=== PATIENT | male | born 1985 | race Caucasian/White ===

== ENCOUNTER 2016-06-04 18:54 | Emergency (ER) | payer OTHER ==
[2016-06-04] MEDS ORDERED: diphenhydrAMINE INJ 50MG/ML VIAL (J1200) As Ordered ONE (20:15)
[2016-06-04] MEDS ORDERED: METOCLOPRAMIDE INJ 10MG/2ML VIAL (J2765) As Ordered ONE (20:15)
[2016-06-04] MEDS ORDERED: dexameTHASONE 4 MG/ML 1ML VIAL (J1100) As Ordered ONE (20:15)
--- NOTE | 2016-06-04 21:27 | EDDOCDS ---
Physician Documentation [facility] Name: Reg Montejo Age: 30 yrs Sex: Male : 1985 Arrival Date: 06/04/2016 Time: 18:54 Bed I9 Private MD: Other - Complete Info On Cds Disposition: 06/04/16 21:13 Discharged to Home/Self Care. Impression: Headache. - Condition is Stable. - Medication Reconciliation, Local Pharmacy Hours form. - Follow up: Emergency Department; When: As soon as possible; Reason: Worsening of conditions. Follow up: Private Physician; When: 1 - 2 days; Reason: Recheck today's complaints. - Problem is an acute exacerbation. - Symptoms have improved. Historical: - Allergies: No known drug Allergies; - Home Meds: 1. Tylenol 325 mg Oral tab 1 tab (Last dose: 06/04/2016 17:00) - PMHx: Migraine Headaches; Cluster Headaches; GERD; Sleep Apnea w/o CPAP; - PSHx: none; - Social history: Smoking status: Patient states was never smoker of tobacco. No barriers to communication noted, The patient speaks fluent Slovenian, Speaks appropriately for age, Preferred Language: Slovenian. - Family history: Not pertinent. - : The pt / caregiver states he / she is not on anticoagulants. Home medication list is obtained from the patient. - Exposure Risk Screening:: None identified. Vital Signs: 06/04 18:57 BP 129 / 80; Pulse 71; Resp 18 S; Temp 98.2(O); Pulse Ox 99% on R/A; Weight 68.04 kg / gr2 150 lbs (R); Height 5 ft. 11 in. (180.34 cm) (R); Pain 6/10; 21:23 BP 127 / 75; Pulse 62; Resp 18; Temp 96.8(O); Pulse Ox 99% on R/A; Pain 0/10; kb5 18:57 Body Mass Index 20.92 (68.04 kg, 180.34 cm) gr2 MDM: 20:00 Decadron - Dexamethasone Sodium Phosphate 8 mg IM once ordered. jk8 20:00 Metoclopramide 10 mg IM once ordered. jk8 20:00 diphenhydrAMINE 25 mg IM once ordered. jk8 20:00 IV Saline Lock ordered. jk8 20:00 NS 0.9% 1000 ml IV at bolus once ordered. jk8 20:28 diphenhydrAMINE 25 mg IVP once ordered. jk8 20:28 Metoclopramide 10 mg IV at 40 mg/hr once over 15 mins ordered. jk8 20:28 Dexamethasone (0.6mg/kg) 0.6 mg/kg PO once; not to exceed 10 milligrams. Per Pharmacy, 8 may use IV solution orally ordered. 20:39 Financial registration complete. gjb Administered Medications: 20:24 Drug: NS 0.9% 1000 ml [sodium chloride 0.9 % intravenous solution] Route: IV; Rate: jmb bolus; Site: left antecubital; 21:24 Follow up: IV Status: Infusion discontinued; IV Intake: 800ml jf3 20:25 Not Given (IV): Decadron - Dexamethasone Sodium Phosphate 8 mg IM once jk8 20:25 Not Given (IV): Metoclopramide 10 mg IM once jk8 20:25 Not Given (IV): diphenhydrAMINE 25 mg IM once jk8 20:29 Drug: Dexamethasone (0.6mg/kg) 8 mg {Note: 8 mg given per provider order.} Route: PO; jmb 21:24 Follow up: Response: Pain is decreased jf3 20:30 Drug: diphenhydrAMINE 25 mg [diphenhydramine 50 mg/mL injection solution (0.5 mL)] jmb Route: IVP; Site: left antecubital; 21:24 Follow up: Response: Pain is decreased jf3 20:30 Drug: Metoclopramide 10 mg [metoclopramide 5 mg/mL injection solution] Route: IV; Rate: jmb 40 mg/hr; Infused Over: 15 mins; Site: left antecubital; 21:24 Follow up: Response: Pain is decreased jf3 Signatures: Elaina RamiresRN RN lf1 Chase Cobb PA-C PA-C jk8 Michael Martinez RN RN jf3 Palak Platt Roger Rankin RN b MTDD
--- NOTE | 2016-06-04 21:27 | EDDOCDS ---
Nurse's Notes [facility] Name: Reg Montejo Age: 30 yrs Sex: Male : 1985 Arrival Date: 06/04/2016 Time: 18:54 Bed I9 / Private MD: Other - Complete Info On Cds Diagnosis: Headache Presentation: 06/04 19:00 Presenting complaint: Patient states: Has been out of his migraine medicine for about a lf1 month and now has a headache and dental pain. Pain is lower right side of jaw and above left eye, described as throbbing and is currently 6/10. Presenting complaint: Patient states: Pt reports he has seen Dr. Fernández and had testing done because he was having 10-15 headaches per day. States he has cancelled two appointments with him because he has been working. Next appt. is scheduled in July 2016. This patient has no additional risk factors. Adult Sepsis Screening: The patient does not have new or worsening altered mentation. Patient's respiratory rate is less than 22. Systolic blood pressure is greater than 100. Patient has a qSOFA score of 0- Negative Sepsis Screen. Suicide/Homicide risk assessment- the patient denies having any suicidal and/or homicidal ideations and does not present with any other emotional, behavioral or mental health complaints. 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 Transition of care: patient was not received from another setting of care. 19:00 Acuity: TRANG Level 4 lf1 19:00 Method Of Arrival: Walkin/Carried/Asstd lf1 Triage Assessment: 19:05 Headache History: This headache is like all previous headaches. General: Appears in no lf1 apparent distress, comfortable, Behavior is cooperative. Pain: Location: left eye and right jaw Pain currently is 6 out of 10 on a pain scale. Pain began 5 hours ago Also complains of dizziness. HIV screening NA for this visit Offered previously. Neurological: Level of Consciousness is awake, alert, obeys commands, Oriented to person, place, time, Gait is steady, Speech is normal, Facial symmetry appears normal. EENT: No deficits noted. Respiratory: Respiratory effort is even, unlabored. GI: Denies nausea, vomiting. Derm: Skin is normal. Injury Description: No known injury. Historical: - Allergies: No known drug Allergies; - Home Meds: 1. Tylenol 325 mg Oral tab 1 tab (Last dose: 06/04/2016 17:00) - PMHx: Migraine Headaches; Cluster Headaches; GERD; Sleep Apnea w/o CPAP; - PSHx: none; - Social history: Smoking status: Patient states was never smoker of tobacco. No barriers to communication noted, The patient speaks fluent Khmer, Speaks appropriately for age, Preferred Language: Khmer. - Family history: Not pertinent. - : The pt / caregiver states he / she is not on anticoagulants. Home medication list is obtained from the patient. - Exposure Risk Screening:: None identified. Screenin:07 Screening information is obtained from the patient. Fall risk: No risks identified. lf1 Assistance ADL's: requires no assistance with activities of daily living. Abuse/DV Screen: The patient / caregiver reports he/she is: not in a situation that causes fear, pain or injury. Nutritional screening: No deficits noted. Advance Directives: Currently, there is no health care proxy. There is no active DNR order. home support is adequate. Assessment: 20:25 General: Appears in no apparent distress, comfortable, Behavior is appropriate for age, jmb cooperative. Pain: Location: face and right jaw Pain currently is 4 out of 10 on a pain scale. Neurological: Level of Consciousness is awake, alert, obeys commands, Oriented to person, place, time, Biology Internship are equal bilaterally Speech is normal, Facial symmetry appears normal, Facial symmetry: tongue is midline. Cardiovascular: Capillary refill < 3 seconds Heart tones present Pulses are all present. Respiratory: Airway is patent Respiratory effort is even, unlabored, Respiratory pattern is regular, symmetrical, Breath sounds are clear bilaterally. GI: Abdomen is non- distended Bowel sounds present X 4 quads. Abd is soft and non tender X 4 quads. Derm: Skin is pink, warm & dry. Musculoskeletal: Range of motion intact in all extremities. 21:25 General: Appears in no apparent distress, comfortable, Behavior is cooperative. Pain: jf3 Denies pain. Neurological: Level of Consciousness is awake, alert, Oriented to person, place, time. Cardiovascular: Capillary refill < 3 seconds. Cardiovascular: Chest pain is denied. Respiratory: Airway is patent Respiratory effort is even, unlabored, Respiratory pattern is regular, symmetrical, Denies shortness of breath. Derm: Skin is normal. Vital Signs: 18:57 BP 129 / 80; Pulse 71; Resp 18 S; Temp 98.2(O); Pulse Ox 99% on R/A; Weight 68.04 kg gr2 (R); Height 5 ft. 11 in. (180.34 cm) (R); Pain 6/10; 21:23 BP 127 / 75; Pulse 62; Resp 18; Temp 96.8(O); Pulse Ox 99% on R/A; Pain 0/10; kb5 18:57 Body Mass Index 20.92 (68.04 kg, 180.34 cm) gr2 Vitals: 18:57 Log In Time: June 04, 2016 at 18:57. gr2 ED Course: 18:56 Patient visited by Omar Villegas. gr2 18:56 Other - Complete Info On Cds is Private Physician. gr2 18:56 Patient moved to Waiting gr2 18:58 Patient visited by Omar Villegas. gr2 18:58 Patient moved to Pre RCE gr2 19:04 Triage Initiated lf1 19:32 Patient moved to Triage 1 ar3 19:41 Chase Cobb PA-C is PHCP. jk8 19:41 Christian Gardner DO is Attending Physician. jk8 19:41 Patient visited by Chase Cobb PA-C. jk8 20:09 Patient moved to I cz 20:25 Inserted saline lock: 20 gauge in left antecubital area. jmb 20:26 Patient visited by Roger Sheikh RN. jmb 21:24 Patient visited by Mk Gordillo PCA. kb5 21:25 The patient / caregiver is instructed regarding the plan of care and ED course. jf3 21:25 Discontinued IV lock intact, bleeding controlled, pressure dressing applied, No jf3 redness/swelling at site. No procedures done that require assistance. Administered Medications: 20:24 Drug: NS 0.9% 1000 ml [sodium chloride 0.9 % intravenous solution] Route: IV; Rate: jmb bolus; Site: left antecubital; 21:24 Follow up: IV Status: Infusion discontinued; IV Intake: 800ml jf3 20:25 Not Given (IV): Decadron - Dexamethasone Sodium Phosphate 8 mg IM once jk8 20:25 Not Given (IV): Metoclopramide 10 mg IM once jk8 20:25 Not Given (IV): diphenhydrAMINE 25 mg IM once jk8 20:29 Drug: Dexamethasone (0.6mg/kg) 8 mg {Note: 8 mg given per provider order.} Route: PO; jmb 21:24 Follow up: Response: Pain is decreased jf3 20:30 Drug: diphenhydrAMINE 25 mg [diphenhydramine 50 mg/mL injection solution (0.5 mL)] jmb Route: IVP; Site: left antecubital; 21:24 Follow up: Response: Pain is decreased jf3 20:30 Drug: Metoclopramide 10 mg [metoclopramide 5 mg/mL injection solution] Route: IV; Rate: jmb 40 mg/hr; Infused Over: 15 mins; Site: left antecubital; 21:24 Follow up: Response: Pain is decreased jf3 Intake: 21:24 IV: 800.00ml; Total: 800.00ml. jf3 Order Results: There are currently no results for this order. Outcome: 21:13 Discharge ordered by Provider. jk8 21:26 Discharge Assessment: Patient awake, alert and oriented x 3. No cognitive and/or jf3 functional deficits noted. Patient verbalized understanding of disposition instructions. patient administered narcotics - no. The following High Risk Discharge criteria are identified: None. Discharged to home ambulatory, with significant other. Condition: good. Discharge instructions given to patient, Instructed on discharge instructions, follow up and referral plans. Demonstrated understanding of instructions, Pt was receptive of discharge instructions/ teaching. No special radiology studies were completed. Property :Personal belongings accompany Pt. 21:26 Patient left the ED. jf3 Signatures: Lionel Sanchez, RN RN Mk Costello, EXECUTIVE SECRETARY SOC[employer] WELFARE EXECUTIVE SECRETARY [employer]ELF[employer] kb5 Elaina RamiresRN RN lf1 Carolyne Bourgeois, EXECUTIVE SECRETARY SOCIAL [employer]ELFARE EXECUTIVE SECRETARY SOC[employer]ELF[employer] ar3 Omar Villegas gr2 Roger SheikhRN RN Chase Murdock PA-C PA-C jk8 Michael Martinez RN RN jf3 MTDD
--- NOTE | 2016-06-06 22:27 | EDDOCDS ---
Physician Documentation [facility] Name: Reg Montejo Age: 30 yrs Sex: Male : 1985 Arrival Date: 06/04/2016 Time: 18:54 Bed I9 Private MD: Other - Complete Info On Cds Disposition: 06/04/16 21:13 Discharged to Home/Self Care. Impression: Headache. - Condition is Stable. - Medication Reconciliation, Local Pharmacy Hours form. - Follow up: Emergency Department; When: As soon as possible; Reason: Worsening of conditions. Follow up: Private Physician; When: 1 - 2 days; Reason: Recheck today's complaints. - Problem is an acute exacerbation. - Symptoms have improved. Historical: - Allergies: No known drug Allergies; - Home Meds: 1. Tylenol 325 mg Oral tab 1 tab (Last dose: 06/04/2016 17:00) - PMHx: Migraine Headaches; Cluster Headaches; GERD; Sleep Apnea w/o CPAP; - PSHx: none; - Social history: Smoking status: Patient states was never smoker of tobacco. No barriers to communication noted, The patient speaks fluent Ivorian, Speaks appropriately for age, Preferred Language: Ivorian. - Family history: Not pertinent. - : The pt / caregiver states he / she is not on anticoagulants. Home medication list is obtained from the patient. - Exposure Risk Screening:: None identified. Vital Signs: 06/04 18:57 BP 129 / 80; Pulse 71; Resp 18 S; Temp 98.2(O); Pulse Ox 99% on R/A; Weight 68.04 kg / gr2 150 lbs (R); Height 5 ft. 11 in. (180.34 cm) (R); Pain 6/10; 21:23 BP 127 / 75; Pulse 62; Resp 18; Temp 96.8(O); Pulse Ox 99% on R/A; Pain 0/10; kb5 18:57 Body Mass Index 20.92 (68.04 kg, 180.34 cm) gr2 MDM: 20:00 Decadron - Dexamethasone Sodium Phosphate 8 mg IM once ordered. jk8 20:00 Metoclopramide 10 mg IM once ordered. jk8 20:00 diphenhydrAMINE 25 mg IM once ordered. jk8 20:00 IV Saline Lock ordered. jk8 20:00 NS 0.9% 1000 ml IV at bolus once ordered. jk8 20:28 diphenhydrAMINE 25 mg IVP once ordered. jk8 20:28 Metoclopramide 10 mg IV at 40 mg/hr once over 15 mins ordered. jk8 20:28 Dexamethasone (0.6mg/kg) 0.6 mg/kg PO once; not to exceed 10 milligrams. Per Pharmacy, 8 may use IV solution orally ordered. 20:39 Financial registration complete. b 22:30 [facility] Payment Agreement was scanned into [employer] and attached to record. b 06/05 10:07 T-Sheet-- Draft Copy was scanned into [employer] and attached to record. gb Administered Medications: 06/04 20:24 Drug: NS 0.9% 1000 ml [sodium chloride 0.9 % intravenous solution] Route: IV; Rate: jmb bolus; Site: left antecubital; 21:24 Follow up: IV Status: Infusion discontinued; IV Intake: 800ml jf3 20:25 Not Given (IV): Decadron - Dexamethasone Sodium Phosphate 8 mg IM once jk8 20:25 Not Given (IV): Metoclopramide 10 mg IM once jk8 20:25 Not Given (IV): diphenhydrAMINE 25 mg IM once jk8 20:29 Drug: Dexamethasone (0.6mg/kg) 8 mg {Note: 8 mg given per provider order.} Route: PO; jmb 21:24 Follow up: Response: Pain is decreased jf3 20:30 Drug: diphenhydrAMINE 25 mg [diphenhydramine 50 mg/mL injection solution (0.5 mL)] jmb Route: IVP; Site: left antecubital; 21:24 Follow up: Response: Pain is decreased jf3 20:30 Drug: Metoclopramide 10 mg [metoclopramide 5 mg/mL injection solution] Route: IV; Rate: jmb 40 mg/hr; Infused Over: 15 mins; Site: left antecubital; 21:24 Follow up: Response: Pain is decreased jf3 Signatures: Mariposa Posey, Reg Reg gb Elaina Ramires RN RN lf1 Chase Cobb PA-C PA-C jk8 Michael Martinez RN RN jf3 Palak Platt Joshua RN jmb The chart was reviewed and I authenticate all verbal orders and agree with the evaluation and treatment provided.Attachments: 22:30 [facility] Payment Agreement gjb 06/05 10:07 T-Sheet-- Draft Copy gb Chart Complete MTDD
--- NOTE | 2016-06-06 22:27 | EDDOCDS ---
Physician Documentation [facility] Name: Reg Montejo Age: 30 yrs Sex: Male : 1985 Arrival Date: 06/04/2016 Time: 18:54 Bed I9 Private MD: Other - Complete Info On Cds Disposition: 06/04/16 21:13 Discharged to Home/Self Care. Impression: Headache. - Condition is Stable. - Medication Reconciliation, Local Pharmacy Hours form. - Follow up: Emergency Department; When: As soon as possible; Reason: Worsening of conditions. Follow up: Private Physician; When: 1 - 2 days; Reason: Recheck today's complaints. - Problem is an acute exacerbation. - Symptoms have improved. Historical: - Allergies: No known drug Allergies; - Home Meds: 1. Tylenol 325 mg Oral tab 1 tab (Last dose: 06/04/2016 17:00) - PMHx: Migraine Headaches; Cluster Headaches; GERD; Sleep Apnea w/o CPAP; - PSHx: none; - Social history: Smoking status: Patient states was never smoker of tobacco. No barriers to communication noted, The patient speaks fluent Filipino, Speaks appropriately for age, Preferred Language: Filipino. - Family history: Not pertinent. - : The pt / caregiver states he / she is not on anticoagulants. Home medication list is obtained from the patient. - Exposure Risk Screening:: None identified. Vital Signs: 06/04 18:57 BP 129 / 80; Pulse 71; Resp 18 S; Temp 98.2(O); Pulse Ox 99% on R/A; Weight 68.04 kg / gr2 150 lbs (R); Height 5 ft. 11 in. (180.34 cm) (R); Pain 6/10; 21:23 BP 127 / 75; Pulse 62; Resp 18; Temp 96.8(O); Pulse Ox 99% on R/A; Pain 0/10; kb5 18:57 Body Mass Index 20.92 (68.04 kg, 180.34 cm) gr2 MDM: 20:00 Decadron - Dexamethasone Sodium Phosphate 8 mg IM once ordered. jk8 20:00 Metoclopramide 10 mg IM once ordered. jk8 20:00 diphenhydrAMINE 25 mg IM once ordered. jk8 20:00 IV Saline Lock ordered. jk8 20:00 NS 0.9% 1000 ml IV at bolus once ordered. jk8 20:28 diphenhydrAMINE 25 mg IVP once ordered. jk8 20:28 Metoclopramide 10 mg IV at 40 mg/hr once over 15 mins ordered. jk8 20:28 Dexamethasone (0.6mg/kg) 0.6 mg/kg PO once; not to exceed 10 milligrams. Per Pharmacy, 8 may use IV solution orally ordered. 20:39 Financial registration complete. b 22:30 [facility] Payment Agreement was scanned into [employer] and attached to record. b 06/05 10:07 T-Sheet-- Draft Copy was scanned into [employer] and attached to record. gb Administered Medications: 06/04 20:24 Drug: NS 0.9% 1000 ml [sodium chloride 0.9 % intravenous solution] Route: IV; Rate: jmb bolus; Site: left antecubital; 21:24 Follow up: IV Status: Infusion discontinued; IV Intake: 800ml jf3 20:25 Not Given (IV): Decadron - Dexamethasone Sodium Phosphate 8 mg IM once jk8 20:25 Not Given (IV): Metoclopramide 10 mg IM once jk8 20:25 Not Given (IV): diphenhydrAMINE 25 mg IM once jk8 20:29 Drug: Dexamethasone (0.6mg/kg) 8 mg {Note: 8 mg given per provider order.} Route: PO; jmb 21:24 Follow up: Response: Pain is decreased jf3 20:30 Drug: diphenhydrAMINE 25 mg [diphenhydramine 50 mg/mL injection solution (0.5 mL)] jmb Route: IVP; Site: left antecubital; 21:24 Follow up: Response: Pain is decreased jf3 20:30 Drug: Metoclopramide 10 mg [metoclopramide 5 mg/mL injection solution] Route: IV; Rate: jmb 40 mg/hr; Infused Over: 15 mins; Site: left antecubital; 21:24 Follow up: Response: Pain is decreased jf3 Signatures: Mariposa Posey, Reg Reg gb Elaina Ramires RN RN lf1 Chase Cobb PA-C PA-C jk8 Michael Martinez RN RN jf3 Palak Platt Joshua RN jmb The chart was reviewed and I authenticate all verbal orders and agree with the evaluation and treatment provided.Attachments: 22:30 [facility] Payment Agreement gjb 06/05 10:07 T-Sheet-- Draft Copy gb Chart Complete MTDD
--- NOTE | 2016-06-06 22:27 | EDDOCDS ---
Nurse's Notes [facility] Name: Reg Montejo Age: 30 yrs Sex: Male : 1985 Arrival Date: 06/04/2016 Time: 18:54 Bed I9 / Private MD: Other - Complete Info On Cds Diagnosis: Headache Presentation: 06/04 19:00 Presenting complaint: Patient states: Has been out of his migraine medicine for about a lf1 month and now has a headache and dental pain. Pain is lower right side of jaw and above left eye, described as throbbing and is currently 6/10. Presenting complaint: Patient states: Pt reports he has seen Dr. Fernández and had testing done because he was having 10-15 headaches per day. States he has cancelled two appointments with him because he has been working. Next appt. is scheduled in July 2016. This patient has no additional risk factors. Adult Sepsis Screening: The patient does not have new or worsening altered mentation. Patient's respiratory rate is less than 22. Systolic blood pressure is greater than 100. Patient has a qSOFA score of 0- Negative Sepsis Screen. Suicide/Homicide risk assessment- the patient denies having any suicidal and/or homicidal ideations and does not present with any other emotional, behavioral or mental health complaints. 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 Transition of care: patient was not received from another setting of care. 19:00 Acuity: TRANG Level 4 lf1 19:00 Method Of Arrival: Walkin/Carried/Asstd lf1 Triage Assessment: 19:05 Headache History: This headache is like all previous headaches. General: Appears in no lf1 apparent distress, comfortable, Behavior is cooperative. Pain: Location: left eye and right jaw Pain currently is 6 out of 10 on a pain scale. Pain began 5 hours ago Also complains of dizziness. HIV screening NA for this visit Offered previously. Neurological: Level of Consciousness is awake, alert, obeys commands, Oriented to person, place, time, Gait is steady, Speech is normal, Facial symmetry appears normal. EENT: No deficits noted. Respiratory: Respiratory effort is even, unlabored. GI: Denies nausea, vomiting. Derm: Skin is normal. Injury Description: No known injury. Historical: - Allergies: No known drug Allergies; - Home Meds: 1. Tylenol 325 mg Oral tab 1 tab (Last dose: 06/04/2016 17:00) - PMHx: Migraine Headaches; Cluster Headaches; GERD; Sleep Apnea w/o CPAP; - PSHx: none; - Social history: Smoking status: Patient states was never smoker of tobacco. No barriers to communication noted, The patient speaks fluent Thai, Speaks appropriately for age, Preferred Language: Thai. - Family history: Not pertinent. - : The pt / caregiver states he / she is not on anticoagulants. Home medication list is obtained from the patient. - Exposure Risk Screening:: None identified. Screenin:07 Screening information is obtained from the patient. Fall risk: No risks identified. lf1 Assistance ADL's: requires no assistance with activities of daily living. Abuse/DV Screen: The patient / caregiver reports he/she is: not in a situation that causes fear, pain or injury. Nutritional screening: No deficits noted. Advance Directives: Currently, there is no health care proxy. There is no active DNR order. home support is adequate. Assessment: 20:25 General: Appears in no apparent distress, comfortable, Behavior is appropriate for age, jmb cooperative. Pain: Location: face and right jaw Pain currently is 4 out of 10 on a pain scale. Neurological: Level of Consciousness is awake, alert, obeys commands, Oriented to person, place, time, Utility Mechanic are equal bilaterally Speech is normal, Facial symmetry appears normal, Facial symmetry: tongue is midline. Cardiovascular: Capillary refill < 3 seconds Heart tones present Pulses are all present. Respiratory: Airway is patent Respiratory effort is even, unlabored, Respiratory pattern is regular, symmetrical, Breath sounds are clear bilaterally. GI: Abdomen is non- distended Bowel sounds present X 4 quads. Abd is soft and non tender X 4 quads. Derm: Skin is pink, warm & dry. Musculoskeletal: Range of motion intact in all extremities. 21:25 General: Appears in no apparent distress, comfortable, Behavior is cooperative. Pain: jf3 Denies pain. Neurological: Level of Consciousness is awake, alert, Oriented to person, place, time. Cardiovascular: Capillary refill < 3 seconds. Cardiovascular: Chest pain is denied. Respiratory: Airway is patent Respiratory effort is even, unlabored, Respiratory pattern is regular, symmetrical, Denies shortness of breath. Derm: Skin is normal. Vital Signs: 18:57 BP 129 / 80; Pulse 71; Resp 18 S; Temp 98.2(O); Pulse Ox 99% on R/A; Weight 68.04 kg gr2 (R); Height 5 ft. 11 in. (180.34 cm) (R); Pain 6/10; 21:23 BP 127 / 75; Pulse 62; Resp 18; Temp 96.8(O); Pulse Ox 99% on R/A; Pain 0/10; kb5 18:57 Body Mass Index 20.92 (68.04 kg, 180.34 cm) gr2 Vitals: 18:57 Log In Time: June 04, 2016 at 18:57. gr2 ED Course: 18:56 Patient visited by Omar Villegas. gr2 18:56 Other - Complete Info On Cds is Private Physician. gr2 18:56 Patient moved to Waiting gr2 18:58 Patient visited by Omar Villegas. gr2 18:58 Patient moved to Pre RCE gr2 19:04 Triage Initiated lf1 19:32 Patient moved to Triage 1 ar3 19:41 Chase Cobb PA-C is PHCP. jk8 19:41 Christian Gardner DO is Attending Physician. jk8 19:41 Patient visited by Chase Cobb PA-C. jk8 20:09 Patient moved to I cz 20:25 Inserted saline lock: 20 gauge in left antecubital area. jmb 20:26 Patient visited by Roger Sheikh,JORGE A. jmb 21:24 Patient visited by Mk Gordillo PCA. kb5 21:25 The patient / caregiver is instructed regarding the plan of care and ED course. jf3 21:25 Discontinued IV lock intact, bleeding controlled, pressure dressing applied, No jf3 redness/swelling at site. No procedures done that require assistance. 22:30 [facility] [place] was scanned into [employer] and attached to record. gjb 06/05 10:07 T-Sheet-- Draft Copy was scanned into [employer] and attached to record. gb Administered Medications: 06/04 20:24 Drug: NS 0.9% 1000 ml [sodium chloride 0.9 % intravenous solution] Route: IV; Rate: jmb bolus; Site: left antecubital; 21:24 Follow up: IV Status: Infusion discontinued; IV Intake: 800ml jf3 20:25 Not Given (IV): Decadron - Dexamethasone Sodium Phosphate 8 mg IM once jk8 20:25 Not Given (IV): Metoclopramide 10 mg IM once jk8 20:25 Not Given (IV): diphenhydrAMINE 25 mg IM once jk8 20:29 Drug: Dexamethasone (0.6mg/kg) 8 mg {Note: 8 mg given per provider order.} Route: PO; jmb 21:24 Follow up: Response: Pain is decreased jf3 20:30 Drug: diphenhydrAMINE 25 mg [diphenhydramine 50 mg/mL injection solution (0.5 mL)] jmb Route: IVP; Site: left antecubital; 21:24 Follow up: Response: Pain is decreased jf3 20:30 Drug: Metoclopramide 10 mg [metoclopramide 5 mg/mL injection solution] Route: IV; Rate: jmb 40 mg/hr; Infused Over: 15 mins; Site: left antecubital; 21:24 Follow up: Response: Pain is decreased jf3 Intake: 21:24 IV: 800.00ml; Total: 800.00ml. jf3 Order Results: There are currently no results for this order. Outcome: 21:13 Discharge ordered by Provider. jk8 21:26 Discharge Assessment: Patient awake, alert and oriented x 3. No cognitive and/or jf3 functional deficits noted. Patient verbalized understanding of disposition instructions. patient administered narcotics - no. The following High Risk Discharge criteria are identified: None. Discharged to home ambulatory, with significant other. Condition: good. Discharge instructions given to patient, Instructed on discharge instructions, follow up and referral plans. Demonstrated understanding of instructions, Pt was receptive of discharge instructions/ teaching. No special radiology studies were completed. Property :Personal belongings accompany Pt. 21:26 Patient left the ED. jf3 Signatures: Lionel Sanchez, RN RN Mariposa Dunbar, Felix Reg Mk Lima, MINI BAR ATTENDANT MINI BAR ATTENDANT kb5 Elaina Ramires RN RN lf1 Carolyne Bourgeois, MINI BAR ATTENDANT MINI BAR ATTENDANT ar3 Omar Villegas gr2 Roger SheikhRN RN Chase Murdock PA-C PAPrerna jk8 Michael Martinez RN RN jf3 Palak Platt gjb Chart Complete MTDD
== END 2016-06-04 21:26 | disposition home or self-care (01) ==
LOC: M ED 18:54
DX: G43.909 Migraine, unspecified, not intractable, without status migrainosus (principal); K21.9 Gastro-esophageal reflux disease without esophagitis; G47.30 Sleep apnea, unspecified
CPT/HCPCS: 96361; 96374; 96375; 99283; J1100; J1200; J2765

== ENCOUNTER 2016-07-19 06:23 | Emergency (ER) | payer OTHER ==
[~2016-07-19] VITALS: Ht 180.3 cm; Wt 70.3 kg
[2016-07-19] MEDS ORDERED: AMIT25TA PO (06:49)
[2016-07-19] MEDS ORDERED: ZOFR4TAB3 PO (07:14)
[2016-07-19] MEDS ORDERED: ONDANSETRON 4 MG ORAL DISINTEGRATING TAB (S0181) PO ONE (07:15)
[2016-07-19 07:32] VITALS: BP 128/81
== END 2016-07-19 07:33 | disposition home or self-care (01) ==
LOC: M ED 07:20
DX: R11.2 Nausea with vomiting, unspecified (principal); R19.7 Diarrhea, unspecified

== ENCOUNTER 2016-09-30 22:53 | Emergency (ER) | payer OTHER ==
[~2016-09-30] VITALS: Ht 180.3 cm; Wt 70.3 kg
[~2016-09-30 22:53] MED LIST: AMIT25TA PO; ZOFR4TAB3 PO
[2016-10-01] MEDS ORDERED: NORCO, ANEXSIA 5/325MG TABLET (HYDROcodone/ACETAMINOPHEN) PO ONE (00:45)
[2016-10-01 00:47] VITALS: BP 122/80
== END 2016-10-01 00:55 | disposition home or self-care (01) ==
LOC: M ED 10-01 00:44
DX: K08.89 Other specified disorders of teeth and supporting structures (principal)

== ENCOUNTER 2016-12-27 09:16 | Emergency (ER) | payer OTHER ==
[~2016-12-27] VITALS: Ht 180.3 cm; Wt 70.5 kg
[2016-12-27] MEDS ORDERED: LEXA1TAB2 PO (09:28)
[2016-12-27] MEDS ORDERED: CELE1CAP4 PO (09:28)
[2016-12-27] MEDS ORDERED: BUTATAB6 PO (09:28)
[2016-12-27 10:15] LABS: MEAN CORPUSCULAR HGB CONC 34.3 g/dl (32.0-36.5); MEAN CORPUSCULAR VOLUME 84.4 fl (80.0-96.0); WHITE BLOOD COUNT 5.4 K/mm3 (4.0-10.0)
[2016-12-27] MEDS ORDERED: NS 1,000 ML IV ONE (10:15)
[2016-12-27] MEDS ORDERED: ISOVUE-370 76% 100ML VIAL (Q9967) As Ordered ONE (10:26)
[2016-12-27 10:31] LABS: ANION GAP 6 MEQ/L (8-16); BLOOD UREA NITROGEN 12 MG/DL (7-18); CALCIUM LEVEL 8.7 MG/DL (8.5-10.1); CARBON DIOXIDE LEVEL 29 MEQ/L (21-32); CHLORIDE LEVEL 107 MEQ/L (98-107); CREATININE FOR GFR 0.86 MG/DL (0.70-1.30); GLOMERULAR FILTRATION RATE > 60.0 (>60); GLUCOSE, FASTING 94 MG/DL (70-105); POTASSIUM SERUM 3.9 MEQ/L (3.5-5.1); SODIUM LEVEL 142 MEQ/L (136-145)
--- NOTE | 2016-12-27 12:08 | REP ---
CT ANGIOGRAM OF THE CHEST: TECHNIQUE: Axial contrast enhanced images from the thoracic inlet to the upper abdomen using 100 mL Isovue 370 intravenous contrast material with multiplanar reformations. There is no CT evidence of pulmonary embolism. Pulmonary arteries opacify well with contrast. There is no thoracic aortic aneurysm or dissection. There is no mediastinal, hilar, or chest wall lymphadenopathy. There is no pleural or pericardial effusion. The heart is normal in size. No infiltrate is seen in either lung. Incidental note is made of an azygos lobe. The visualized upper abdominal structures are unremarkable. IMPRESSION: No CT evidence of pulmonary embolism or other acute finding. Signed by Chandler Giraldo MD 12/27/2016 03:14 P
[2016-12-27 14:11] VITALS: BP 125/82
--- NOTE | 2016-12-28 10:22 | ECGEPIP ---
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
== END 2016-12-27 14:12 | disposition home or self-care (01) ==
LOC: M ED 09:16
DX: R55 Syncope and collapse (principal)
CPT/HCPCS: 71275; 80048; 85027; 93005; 99285; Q9967

== ENCOUNTER 2017-01-05 10:55 | Emergency (ER) | payer OTHER ==
[~2017-01-05] VITALS: Ht 180.3 cm; Wt 155.0 kg
[~2017-01-05 10:55] MED LIST changes: +BUTATAB6 PO; +CELE1CAP4 PO; +LEXA1TAB2 PO
[2017-01-05] MEDS ORDERED: ONDANSETRON 4MG/2ML VIAL (J2405) IV ONE (11:45)
[2017-01-05] MEDS ORDERED: MORPHINE 4 MG/ML 1ML SYRINGE IV PRN (11:45)
[2017-01-05] MEDS ORDERED: ASPIRIN 81 MG CHEW TABLET PO ONE (11:45)
--- NOTE | 2017-01-05 12:16 | REP ---
Clinical: Chest pain . Comparison: 01/27/2016 . Technique: PA and lateral. Findings: The mediastinum and cardiac silhouette are normal. The lung maher are clear and without acute consolidation, effusion, or pneumothorax. The skeletal structures are intact and normal. Impression: 1. No acute cardiopulmonary process. Signed by Kaiser Warren MD 01/05/2017 12:07 P
[2017-01-05 12:57] LABS: BASO % 0.4 % (0.0-1.0); EOS % 1.1 % (0.0-3.0); LARGE UNSTAINED CELL # 0.1 K/mm3 (0.0-0.4); LARGE UNSTAINED CELL % 1.5 % (0.0-4.0); LYMPH # 0.8 K/mm3 (1.5-6.5); LYMPH % 17.4 % (24.0-44.0); MEAN CORPUSCULAR HEMOGLOBIN 28.6 pg (27.0-33.0); MEAN CORPUSCULAR HGB CONC 33.6 g/dl (32.0-36.5); MEAN CORPUSCULAR VOLUME 85.1 fl (80.0-96.0); MONO # 0.3 K/mm3 (0.0-0.8); MONO % 5.4 % (0.0-5.0); NEUTROPHILS # 3.6 K/mm3 (1.8-7.7); NEUTROPHILS % 74.2 % (36.0-66.0); PLATELET COUNT, AUTOMATED 244 k/mm3 (150-450); RED CELL DISTRIBUTION WIDTH 12.7 % (11.5-14.5); WHITE BLOOD COUNT 4.8 K/mm3 (4.0-10.0)
[2017-01-05 13:02] LABS: ALBUMIN 4.3 GM/DL (3.2-5.2); ALBUMIN/GLOBULIN RATIO 1.23 (1.00-1.93); ALKALINE PHOSPHATASE 117 U/L (45-117); ALT/SGPT 20 U/L (12-78); ANION GAP 7 MEQ/L (8-16); AST/SGOT 9 U/L (15-37); BILIRUBIN,DIRECT 0.1 MG/DL (0.0-0.2); BILIRUBIN,TOTAL 0.5 MG/DL (0.2-1.0); BLOOD UREA NITROGEN 10 MG/DL (7-18); CALCIUM LEVEL 9.1 MG/DL (8.5-10.1); CARBON DIOXIDE LEVEL 31 MEQ/L (21-32); CHLORIDE LEVEL 104 MEQ/L (98-107); CREATININE FOR GFR 0.79 MG/DL (0.70-1.30); GLOMERULAR FILTRATION RATE > 60.0 (>60); GLUCOSE, FASTING 89 MG/DL (70-105); INR 0.92; POTASSIUM SERUM 3.9 MEQ/L (3.5-5.1); SODIUM LEVEL 142 MEQ/L (136-145); TOTAL PROTEIN 7.8 GM/DL (6.4-8.2)
[2017-01-05 15:26] VITALS: BP 127/78
--- NOTE | 2017-01-05 19:39 | ECGEPIP ---
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
--- NOTE | 2017-01-05 19:43 | ECGEPIP ---
Stationary ECG Study 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
== END 2017-01-05 15:35 | disposition home or self-care (01) ==
LOC: M ED 10:55
DX: R07.9 Chest pain, unspecified (principal); R55 Syncope and collapse; Z72.0 Tobacco use
CPT/HCPCS: 71020; 80048; 80076; 82550; 82553; 83690; 84439; 84443; 85025; 85379; 85610; 85730; 93005; 93041; 94760; 96374; 96375; 99285; J2405

== ENCOUNTER 2017-01-08 10:57 | Inpatient (IN) | payer OTHER ==
[~2017-01-08] VITALS: Ht 180.3 cm; Wt 70.4 kg
[~2017-01-08 10:57] MED LIST changes: +CitaloPRAM (CeleXA) 10 MG TABLET PO SCH; +NICOTINE 21MG/24HR 1 EA TRANSDERMAL TD SCH
[2017-01-08 12:43] LABS: MEAN CORPUSCULAR HEMOGLOBIN 29.2 pg (27.0-33.0); MEAN CORPUSCULAR HGB CONC 34.4 g/dl (32.0-36.5); MEAN CORPUSCULAR VOLUME 84.8 fl (80.0-96.0); RED CELL DISTRIBUTION WIDTH 12.9 % (11.5-14.5); WHITE BLOOD COUNT 5.9 K/mm3 (4.0-10.0)
[2017-01-08 12:51] LABS: METHADONE URINE NEGATIVE (NEGATIVE)
[2017-01-08 13:00] LABS: ALBUMIN 4.5 GM/DL (3.2-5.2); ALBUMIN/GLOBULIN RATIO 1.32 (1.00-1.93); ALKALINE PHOSPHATASE 124 U/L (45-117); ALT/SGPT 19 U/L (12-78); ANION GAP 8 MEQ/L (8-16); AST/SGOT 9 U/L (15-37); BILIRUBIN,DIRECT 0.1 MG/DL (0.0-0.2); BILIRUBIN,TOTAL 0.5 MG/DL (0.2-1.0); BLOOD UREA NITROGEN 10 MG/DL (7-18); CALCIUM LEVEL 9.1 MG/DL (8.5-10.1); CARBON DIOXIDE LEVEL 29 MEQ/L (21-32); CHLORIDE LEVEL 103 MEQ/L (98-107); CREATININE FOR GFR 0.87 MG/DL (0.70-1.30); GLOMERULAR FILTRATION RATE > 60.0 (>60); GLUCOSE, FASTING 97 MG/DL (70-105); POTASSIUM SERUM 3.9 MEQ/L (3.5-5.1); SODIUM LEVEL 140 MEQ/L (136-145); TOTAL PROTEIN 7.9 GM/DL (6.4-8.2)
[2017-01-08] MEDS ORDERED: ESCI10TA2 PO (13:12)
[2017-01-08] MEDS ORDERED: ONDA4TAB6 PO (13:12)
[2017-01-08] MEDS ORDERED: MAALOX 30 ML SUSP *UDC PO PRN (14:30)
[2017-01-08] MEDS ORDERED: hydrOXYzine 50 MG TAB PO PRN (14:30)
[2017-01-08] MEDS ORDERED: MOM 30ML SUSPENSION UDC PO PRN (14:30)
[2017-01-08] MEDS ORDERED: ACETAMINOPHEN TAB 650MG DOSE (2X325MG) PO PRN (14:30)
[2017-01-08 17:04] VITALS: BP 132/72
[2017-01-08] MEDS: CelecoXIB (CeleBREX) 100 MG CAP PO SCH (17:38)
[2017-01-08] MEDS: ESCITALOPRAM OXALATE 10 MG TAB (LEXAPRO) PO SCH (17:39)
[2017-01-08] MEDS: traZODone 50 MG TAB PO PRN (22:12)
[2017-01-09 06:25] VITALS: BP 106/61
--- NOTE | 2017-01-09 07:40 | HPE ---
DATE OF ADMISSION: 01/08/2017 Please refer to the psychiatric history and evaluation for further details on this admission. This examination and history is intended for medical issues which may need treatment, followup, or consult on this 31-year-old male. PRIMARY CARE PROVIDER: [facility]. ALLERGIES: No known allergies. 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 Ethyl alcohol (EtOH): Once a week. Smokes: None. Recreational drug use: None. PAST MEDICAL HISTORY: Migraines, panic attacks, obstructive sleep apnea for which he wears a continuous positive airway pressure (CPAP). He has been seeing Dr. Miranda. He had a heart monitor on when he came to the emergency room (ER). He is being worked up as he had an episode where he passed out just after doing PT. He has felt lightheaded occasionally, but has not had any other episodes. No chest pain or palpitations currently. PAST SURGICAL HISTORY: Negative. HOME MEDICATIONS: - acetaminophen - butalbital/caffeine one by mouth every 6 hours as needed for headache - amitriptyline 25 mg by mouth nightly - Celebrex 200 mg by mouth daily - Lexapro 10 mg by mouth daily - Zofran 4 mg sublingual every 4 hours as needed for nausea and vomiting LABORATORY DATA: CBC was normal. Electrolytes normal. BUN and creatinine were 10 and 0.87. Toxicology screen was negative. REVIEW OF SYSTEMS: Ten systems review was done. Other than the workup with Dr. Miranda, was unremarkable. He has had no further syncopal episodes. He has a followup scheduled with Dr. Miranda. OBJECTIVE: 31-year-old cooperative male in no acute distress. Height 71 inches, weight 70.4 kg, body mass index (BMI) 21.6. Blood pressure 132/72, pulse 69, respirations 16. Patient is alert and oriented times three. Pupils equal and reactive to light. Extraocular movements are intact. Cornea and sclerae clear. Conjunctivae is normal. No facial asymmetry. Pharynx, tongue, gums pink and moist. Tongue is midline. NECK: Supple without lymphadenopathy. No thyromegaly. No goiter. Carotids 2+ without bruit. CHEST: Clear to auscultation without wheeze or retraction. HEART: Regular. ABDOMEN: Benign. Bowel sounds positive. GENITOURINARY/RECTAL: Not done. EXTREMITIES: Show equal strength. Full range of motion. No cyanosis, clubbing, or edema. SKIN: Warm and dry. IMPRESSION/PLAN: 1. Psychiatric plan per psychiatry. 2. Continue workup for cardiac exercise specialist and followup with Dr. Miranda as already scheduled. 3. Continue current medications without change.
[2017-01-09] MEDS: ESCITALOPRAM OXALATE 10 MG TAB (LEXAPRO) PO SCH (08:09)
[2017-01-09] MEDS: CelecoXIB (CeleBREX) 100 MG CAP PO SCH (08:09)
[2017-01-09] MEDS ORDERED: ONDANSETRON 4 MG TAB (S0181) PO PRN (11:15)
[2017-01-09] MEDS: OMEPRAZOLE 20 MG CAP PO SCH (11:29)
[2017-01-09 13:52] LABS: THYROXINE (T4) 10.8 UG/DL (4.5-12.0)
[2017-01-09 18:00] VITALS: BP 123/81
--- NOTE | 2017-01-09 18:31 | ECGEPIP ---
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
[2017-01-09] MEDS: traZODone 50 MG TAB PO PRN (21:48)
[2017-01-10 06:23] VITALS: BP 110/64
[2017-01-10] MEDS: CelecoXIB (CeleBREX) 100 MG CAP PO SCH (08:21)
[2017-01-10] MEDS: ESCITALOPRAM OXALATE 10 MG TAB (LEXAPRO) PO SCH (08:21)
[2017-01-10] MEDS: OMEPRAZOLE 20 MG CAP PO SCH (08:21)
[2017-01-10] MEDS: risperiDONE 0.5 MG TAB PO SCH ×2 (12:01→21:28)
--- NOTE | 2017-01-10 16:57 | MHIPNPDOC ---
[facility] Progress Note Progress Note DATE OF SERVICE: 01/10/17 HISTORY: Reported that he slept well and was feeling better after having been on the unit. He felt that his peers were "nice people" and that he would be able to learn from his stay. He identified that some of his stress from work was relieved by being hospitalized and because of that he was able to think more clearly. 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 VITAL SIGNS: See below. NEW TEST RESULTS: no new labs or imaging CURRENT MEDICATIONS: See below. MENTAL STATUS EXAMINATION: Patient is a 31-year old male, who is dressed in [facility] with fair hygiene; he appears the stated age, is calm and cooperative Speech: Is fluent; normal rate, volume, and tone Thought processes including: logical, linear, coherent Thought content: denies SI/HI, reports having had "racing thoughts" earlier but states that Atarax helped calm his mind Description of associations: intact Description of abnormal or psychotic thoughts: denies AVH, does not appear internally stimulated; no evidence of paranoid or delusional thought processes Judgment: good Insight:fair Orientation: x3 Recent and remote memory: intact Attention span and concentration: intact Mood: "calmer". Affect: euthymic; blunted range; smiles appropriately; congruent to stated mood and thought content DIAGNOSES: Generalized Anxiety Disorder Borderline Personality Disorder ASSESSMENT: Improving; engaging well on the unit and displays an interest in learning new coping skills. Patient is focused on developing a plan for his post - life. States this is due to him being "very analytical" and wanting to plan out everything that happens. He is responding well to the medications and has not reported any side effects at this time. As the patient expresses interest in learning new coping skills he will likely do well with outpatient management in the future, particularly if he is able to engage in DBT and have his worldview challenged once he is more stable. He reports having a good support system and expresses reasonable and diverse future goals. MANAGEMENT PLAN: Will continue to monitor for therapeutic effect of medications and adjust as necessary; continue encouraging patient to develop personal coping skills TIME SPENT: 15 minutes. Vital Signs Vital Signs Date Time Temp Pulse Resp B/P (MAP) Pulse Ox O2 Delivery O2 Flow Rate FiO2 01/10/17 09:00 Room Air 01/10/17 06:23 98.7 69 18 110/64 (79) 01/08/17 17:04 99 Current Medications Current Medications Acetaminophen (Tylenol Tab) 650 mg Q6HP PRN PO HEADACHE or DISCOMFORT; Start at 14:30; Stop 02/07/17 at 14:29 Al Hydrox/Mg Hydrox/Simethicone (Mylanta) 30 ml Q4HP PRN PO HEARTBURN/ INDIGESTION; Start 01/08/17 at 14:30; Stop 02/07/17 at 14:29 Celecoxib (CeleBREX) 200 mg DAILY PO Last administered on 01/10/17 08:21; Start 01/08/17 at 09:00; Stop 02/07/17 at 08:59 Citalopram Hydrobromide (CeleXA) 10 mg DAILY PO ; Start 01/08/17 at 09:00; Stop 01/08/17 at 14:38; Status DC Escitalopram Oxalate (Lexapro) 10 mg DAILY PO Last administered on 01/10/17 08: 21; Start 01/08/17 at 09:00; Stop 02/07/17 at 08:59 Home Med (Med Rec Complete!) ASDIRECTED XX ; Start 01/08/17 at 13:15; Stop at 13:16; Status DC Hydroxyzine HCl (Atarax) 50 mg Q4HP PRN PO ANXIETY/AGITATION; Start 01/08/17 at 14:30; Stop 02/07/17 at 14:29 Magnesium Hydroxide (Milk Of Magnesia) 30 ml DAILYPRN PRN PO CONSTIPATION; Start 01/08/17 at 14:30; Stop 02/07/17 at 14:29 Nicotine (Nicoderm Cq 21mg) 1 patch DAILY TD ; Start 01/08/17 at 09:00; Stop 01/08 at 17:07; Status DC Omeprazole (PriLOSEC) 20 mg DAILY PO Last administered on 01/10/17 08:21; Start 01/09/17 at 09:00; Stop 02/08/17 at 08:59 Ondansetron HCl (Zofran) 4 mg BIDP PRN PO NAUSEA; Start 01/09/17 at 11:15; Stop 02/08/17 at 11:14 Quetiapine Fumarate (SEROquel) 100 mg QHS PO ; Start 01/10/17 at 21:00; Stop 02/09/17 at 20:59 Risperidone (RisperDAL) 0.5 mg BID PO Last administered on 01/10/17 12:01; Start 01/10/17 at 09:00; Stop 02/09/17 at 08:59 Trazodone HCl (Desyrel) 50 mg QHSP PRN PO INSOMNIA Last administered on 21:48; Start 01/08/17 at 14:30; Stop 01/10/17 at 11:24; Status DC Allergies Coded Allergies: No Known Allergies (Unverified , 09/30/16) WAI GARZA MD Jan 10, 2017 16:57
[2017-01-10 18:00] VITALS: BP 128/68
[2017-01-10] MEDS: QUEtiapine FUMARATE 50 MG TAB PO SCH (21:28)
[2017-01-11 06:00] VITALS: BP 103/60
[2017-01-11] MEDS: OMEPRAZOLE 20 MG CAP PO SCH (08:32)
[2017-01-11] MEDS: ESCITALOPRAM OXALATE 10 MG TAB (LEXAPRO) PO SCH (08:32)
[2017-01-11] MEDS: CelecoXIB (CeleBREX) 100 MG CAP PO SCH (08:32)
[2017-01-11] MEDS: risperiDONE 0.5 MG TAB PO SCH ×2 (08:32→21:41)
--- NOTE | 2017-01-11 16:53 | MHIPNPDOC ---
[facility] Progress Note Progress Note DATE OF SERVICE: 01/11/17 HISTORY: Reports sleeping well, denies SI or thoughts of wanting to be . States that his anxiety has lessened considerably and that he has found benefit from his medications in controlling his symptoms. He also notes that groups have been helpful as he finds talking with others gives him a chance to slow his thoughts down. VITAL SIGNS: See below. NEW TEST RESULTS: no new labs CURRENT MEDICATIONS: See below. MENTAL STATUS EXAMINATION: Patient is a 31-year old male, who is dressed in personal clothes appropriate to the season, fair hygiene/grooming; patient is calm and cooperative, no psychomotor changes noted Speech: Is fluent; normal rate, tone, volume Thought processes including: logical, linear, coherent Thought content: denies SI/HI/anxiety; reports focusing on learning coping skills Description of associations: intact Description of abnormal or psychotic thoughts: denies AVH, does not appear internally preoccupied; no paranoid or delusional thoughts elicited Judgment: good Insight: good Orientation: x3 Recent and remote memory: intact Attention span and concentration: intact Mood: ''"calmer". Affect: euthymic; full range; congruent to mood and thought content DIAGNOSES: Generalized Anxiety Disorder Borderline Personality Disorder ASSESSMENT: Patient improving, engaging well on the unit. He is able to readily describe skills he has learned during his stay which he feels will be applicable to his future. Patient expresses interest in continuing treatment when outpatient as he wants to resolve his issues and cope functionally with stress in his life. He has consistently denied SI throughout the admission and appears low-risk for suicide. 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 Will plan to discharge patient on Saturday if he has a good weekend without decompensation. MANAGEMENT PLAN: continue current medications; begin discharge planning TIME SPENT: 15 minutes. Vital Signs Vital Signs Date Time Temp Pulse Resp B/P (MAP) Pulse Ox O2 Delivery O2 Flow Rate FiO2 01/11/17 06:00 98.6 75 18 103/60 (74) 01/10/17 09:00 Room Air 01/08/17 17:04 99 Current Medications Current Medications Acetaminophen (Tylenol Tab) 650 mg Q6HP PRN PO HEADACHE or DISCOMFORT; Start at 14:30; Stop 02/07/17 at 14:29 Al Hydrox/Mg Hydrox/Simethicone (Mylanta) 30 ml Q4HP PRN PO HEARTBURN/ INDIGESTION; Start 01/08/17 at 14:30; Stop 02/07/17 at 14:29 Celecoxib (CeleBREX) 200 mg DAILY PO Last administered on 01/11/17 08:32; Start 01/08/17 at 09:00; Stop 02/07/17 at 08:59 Citalopram Hydrobromide (CeleXA) 10 mg DAILY PO ; Start 01/08/17 at 09:00; Stop 01/08/17 at 14:38; Status DC Escitalopram Oxalate (Lexapro) 10 mg DAILY PO Last administered on 01/11/17 08: 32; Start 01/08/17 at 09:00; Stop 02/07/17 at 08:59 Home Med (Med Rec Complete!) ASDIRECTED XX ; Start 01/08/17 at 13:15; Stop at 13:16; Status DC Hydroxyzine HCl (Atarax) 50 mg Q4HP PRN PO ANXIETY/AGITATION; Start 01/08/17 at 14:30; Stop 02/07/17 at 14:29 Magnesium Hydroxide (Milk Of Magnesia) 30 ml DAILYPRN PRN PO CONSTIPATION; Start 01/08/17 at 14:30; Stop 02/07/17 at 14:29 Nicotine (Nicoderm Cq 21mg) 1 patch DAILY TD ; Start 01/08/17 at 09:00; Stop 01/08 at 17:07; Status DC Omeprazole (PriLOSEC) 20 mg DAILY PO Last administered on 01/11/17 08:32; Start 01/09/17 at 09:00; Stop 02/08/17 at 08:59 Ondansetron HCl (Zofran) 4 mg BIDP PRN PO NAUSEA; Start 01/09/17 at 11:15; Stop 02/08/17 at 11:14 Quetiapine Fumarate (SEROquel) 100 mg QHS PO Last administered on 01/10/17 21: 28; Start 01/10/17 at 21:00; Stop 02/09/17 at 20:59 Risperidone (RisperDAL) 0.5 mg BID PO Last administered on 01/11/17 08:32; Start 01/10/17 at 09:00; Stop 02/09/17 at 08:59 Trazodone HCl (Desyrel) 50 mg QHSP PRN PO INSOMNIA Last administered on 21:48; Start 01/08/17 at 14:30; Stop 01/10/17 at 11:24; Status DC Allergies Coded Allergies: No Known Allergies (Unverified , 09/30/16) WAI GARZA MD Jan 11, 2017 16:53
[2017-01-11 18:00] VITALS: BP 114/61
[2017-01-11] MEDS: QUEtiapine FUMARATE 50 MG TAB PO SCH (21:42)
[2017-01-12 06:40] VITALS: BP 111/60
[2017-01-12] MEDS: OMEPRAZOLE 20 MG CAP PO SCH (08:05)
[2017-01-12] MEDS: ESCITALOPRAM OXALATE 10 MG TAB (LEXAPRO) PO SCH (08:05)
[2017-01-12] MEDS: risperiDONE 0.5 MG TAB PO SCH ×2 (08:05→21:27)
[2017-01-12] MEDS: CelecoXIB (CeleBREX) 100 MG CAP PO SCH (08:05)
[2017-01-12] MEDS ORDERED: traZODone 50 MG TAB PO PRN (14:30)
[2017-01-12 18:07] VITALS: BP 123/73
[2017-01-12] MEDS: QUEtiapine FUMARATE 50 MG TAB PO SCH (21:27)
--- NOTE | 2017-01-12 21:46 | IPN ---
DATE: 01/12/2017 SUBJECTIVE: The patient today states, "I'm in a good mood today." He says that he is not feeling depressed today, but he complains that he still tosses and turns a lot in sleep at night. MENTAL STATUS EXAMINATION: He is alert and oriented times three. Eye contact is fair. Psychomotor activity is normal. There is no formal thought disorder noted. He says his mood is good. His affect is full range and appropriate. Not psychotic, suicidal, or homicidal. Concentration is fair. Memory intact. Insight and judgment are fair. DIAGNOSES: 1. Unspecified anxiety disorder. 2. Unspecified depressive disorder. 3. Posttraumatic stress disorder (PTSD). 4. Borderline personality disorder. TREATMENT PLAN: We will continue to monitor and evaluate this patient for continued resolution and stabilization of his mood, and continue resolution of suicidal or homicidal ideations.
[2017-01-13 06:41] VITALS: BP 130/62
[2017-01-13] MEDS: ESCITALOPRAM OXALATE 10 MG TAB (LEXAPRO) PO SCH (09:10)
[2017-01-13] MEDS: CelecoXIB (CeleBREX) 100 MG CAP PO SCH (09:10)
[2017-01-13] MEDS: risperiDONE 0.5 MG TAB PO SCH ×2 (09:10→20:18)
[2017-01-13] MEDS: OMEPRAZOLE 20 MG CAP PO SCH (09:10)
[2017-01-13 18:09] VITALS: BP 126/78
[2017-01-13] MEDS: QUEtiapine FUMARATE 50 MG TAB PO SCH (20:18)
[2017-01-14 06:52] VITALS: BP 142/71
[2017-01-14] MEDS: ESCITALOPRAM OXALATE 10 MG TAB (LEXAPRO) PO SCH (08:07)
[2017-01-14] MEDS: CelecoXIB (CeleBREX) 100 MG CAP PO SCH (08:07)
[2017-01-14] MEDS: OMEPRAZOLE 20 MG CAP PO SCH (08:07)
[2017-01-14] MEDS: risperiDONE 0.5 MG TAB PO SCH (08:07)
[2017-01-14] MEDS ORDERED: TRAZO50TA PO (09:57)
[2017-01-14] MEDS ORDERED: OMEP20CA3 PO (09:57)
[2017-01-14] MEDS ORDERED: HYDRO50TAB PO (09:57)
[2017-01-14] MEDS ORDERED: RISP0.5T21 PO (09:57)
[2017-01-14] MEDS ORDERED: QUET5TAB PO (09:57)
--- NOTE | 2017-01-14 19:05 | MHDSPDOC ---
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 Patient reported this resulted in derision for his refusal to lift items or otherwise exert himself. Patient also acknowledge stress over a pending investigation regarding credit use by his and his stepson having "stolen" a neighbor's bike resulting in additional charges against the patient. CONSULTANTS INVOLVED: none TREATMENT AND PROGRESS ON THE UNIT : Patient was admitted for safety precautions and started on Lexapro. Due to his inability to sleep with Trazodone the patient was placed on Seroquel as this was felt it would help his anxiety. Patient was also prescribed BID Risperdal to help with anxiety and his "racing thoughts". Patient reported this combo of medication helped him immensely and he was able to readily engage in groups and focus on his treatment plans to improve. Patient remained stable on these medications and reported improved sleep with the Seroquel. He reported a readiness to engage with Behavioral Health upon discharge and was able to describe in detail several plans to help cope with his work-related stressors. HOSPITAL COURSE: Patient denied SI consistently through the hospitalization but did report initial feelings of worthlessness related to his life. These resolve as patient attended groups and he was able to acquire new coping skills. He had no behavioral outbursts and was routinely pleasant when interacting with all associated staff. DISCHARGE ASSESSMENT: 31 year old man with poor coping skills and Borderline Personality Disorder. He has engaged well in treatment on the unit and has acquired coping skills which he reports lessen his anxiety. This has been aided by psychopharmacology which the patient reports receiving without notable side effects. He reports a readiness to engage in continued therapy upon discharge and has plans to continue exploring new coping mechanisms to assist with his stress. At this time there are no safety concerns and he can be discharged to [facility] with continued psychiatric outpatient care. MENTAL STATUS EXAMINATION ON DISCHARGE: Patient is a 31-year old male, who is dressed in appropriate personal clothes; he is calm and cooperative and makes good eye contact Speech is fluent; normal rate, tone, and volume Thought processes including: logical, linear, coherent Thought content: denies SI/HI, reports focus on future activities and continuing with his coping skill development Abstract reasoning, and computation: intact Description of associations: intact Description of abnormal or psychotic thoughts: denies AVH, does not appear internally preoccupied; no evidence of paranoia or delusions Judgment: good Insight: fair Orientation to x3 Recent and remote memory: intact Attention span and concentration: intact Mood: "really good, excited" Affect: euthymic; full range; congruent to mood and thought content MEDICATIONS ON DISCHARGE: Lexapro 10mg Daily for depression Risperdal 0.5mg BID for anxiety and impulse control Seroquel 50mg QHS for sleep PLAN/FOLLOWUP ARRANGEMENTS: will follow-up with [facility] for continued care The amount of time spent in the coordination of care for this patient was approximately 30 minutes. Vital Signs/I&Os Vital Signs Date Time Temp Pulse Resp B/P (MAP) Pulse Ox O2 Delivery O2 Flow Rate FiO2 01/14/17 06:52 99.6 82 18 142/71 (94) Room Air 01/08/17 17:04 99 Medications Scheduled Celecoxib (Celebrex) 200 Mg Cap, 200 MG PO DAILY, (Reported) Escitalopram Oxalate (Escitalopram Oxalate) 10 Mg Tab, 10 MG PO DAILY, (Reported ) Omeprazole (Omeprazole) 20 Mg Cap, 20 MG PO DAILY for Gastritis, #7 Quetiapine Fumerate (Quetiapine Fumarate) 50 Mg Tab, 100 MG PO QHS for SLEEP, # 14 Risperidone (Risperdal) 0.5 Mg Tab, 0.5 MG PO BID for MOOD, #15 Scheduled PRN Acetamin/Butalbital/Caffeine (Butalbital/Acetaminophen/ 50-325-40 mg) 1 Ea Tab, 1 EA PO Q6HP PRN for HEADACHE, (Reported) Hydroxyzine HCl (Hydroxyzine HCl) 50 Mg Tab, 50 MG PO Q4HP PRN for ANXIETY/ AGITATION, #14 Ondansetron (Ondansetron Odt) 4 Mg Tab, 4 MG PO Q4H PRN for NAUSEA OR VOMITING, (Reported) Trazodone HCl (Trazodone HCl) 50 Mg Tab, 50 MG PO QHSP PRN for INSOMNIA, #10 Allergies Coded Allergies: No Known Allergies (Unverified , 09/30/16) WAI GARZA MD Jan 14, 2017 19:05
== END 2017-01-14 11:05 | disposition home or self-care (01) | DRG 880 ==
LOC: M ED 10:57 → M ED INP 14:20 → M PSY 15:40
PROVIDERS: ADMIT Psychiatry & Neurology Psychiatry; ATTEND Psychiatry & Neurology Psychiatry
DX: F41.1 Generalized anxiety disorder (principal); F32.9 Major depressive disorder, single episode, unspecified; F60.3 Borderline personality disorder; F43.10 Post-traumatic stress disorder, unspecified; Z62.810 Personal history of physical and sexual abuse in childhood; G47.33 Obstructive sleep apnea (adult) (pediatric); Z79.899 Other long term (current) drug therapy

== ENCOUNTER 2017-03-17 17:21 | Inpatient (IN) | payer OTHER ==
[~2017-03-17] VITALS: Ht 177.8 cm; Wt 75.0 kg
[~2017-03-17 17:21] MED LIST changes: -CitaloPRAM (CeleXA) 10 MG TABLET PO SCH; +ESCI10TA2 PO; +HYDRO50TAB PO; +OMEP20CA3 PO; +ONDA4TAB6 PO; +QUET5TAB PO; +RISP0.5T21 PO; +TRAZO50TA PO
[2017-03-17 18:12] LABS: MEAN CORPUSCULAR HEMOGLOBIN 28.2 pg (27.0-33.0); MEAN CORPUSCULAR HGB CONC 33.3 g/dl (32.0-36.5); MEAN CORPUSCULAR VOLUME 84.6 fl (80.0-96.0); PLATELET COUNT, AUTOMATED 242 10^3/uL (150-450); RED CELL DISTRIBUTION WIDTH 12.5 % (11.5-14.5); WHITE BLOOD COUNT 7.2 10^3/uL (4.0-10.0)
[2017-03-17 18:38] LABS: METHADONE URINE NEGATIVE (NEGATIVE)
[2017-03-17 18:49] LABS: ALBUMIN 4.1 GM/DL (3.2-5.2); ALBUMIN/GLOBULIN RATIO 1.32 (1.00-1.93); ALKALINE PHOSPHATASE 98 U/L (45-117); ALT/SGPT 21 U/L (12-78); ANION GAP 6 MEQ/L (8-16); AST/SGOT 10 U/L (7-37); BILIRUBIN,DIRECT 0.1 MG/DL (0.0-0.2); BILIRUBIN,TOTAL 0.4 MG/DL (0.2-1.0); BLOOD UREA NITROGEN 10 MG/DL (7-18); CALCIUM LEVEL 8.5 MG/DL (8.5-10.1); CARBON DIOXIDE LEVEL 28 MEQ/L (21-32); CHLORIDE LEVEL 108 MEQ/L (98-107); CREATININE FOR GFR 1.17 MG/DL (0.70-1.30); GLOMERULAR FILTRATION RATE > 60.0 (>60); GLUCOSE, FASTING 77 MG/DL (70-105); POTASSIUM SERUM 3.9 MEQ/L (3.5-5.1); SODIUM LEVEL 142 MEQ/L (136-145); TOTAL PROTEIN 7.2 GM/DL (6.4-8.2)
[2017-03-17] MEDS ORDERED: QUET20XRTB PO (19:48)
[2017-03-17] MEDS ORDERED: HYDR50TA70 PO (19:48)
[2017-03-17] MEDS ORDERED: CELE100C PO (19:48)
[2017-03-17] MEDS ORDERED: IBUPROFEN 600 MG TAB PO ONE (20:00)
[2017-03-17] MEDS ORDERED: MOM 30ML SUSPENSION UDC PO PRN (20:30)
[2017-03-17] MEDS ORDERED: hydrOXYzine 50 MG TAB PO PRN (20:30)
[2017-03-17] MEDS ORDERED: OLANZapine 5 MG TAB PO PRN (20:30)
[2017-03-17] MEDS ORDERED: ACETAMINOPHEN TAB 650MG DOSE (2X325MG) PO PRN (20:30)
[2017-03-17] MEDS ORDERED: MAALOX 30 ML SUSP *UDC PO PRN (20:30)
[2017-03-17] MEDS ORDERED: QUEtiapine FUMARATE 200 MG TAB PO SCH (21:00)
[2017-03-17] MEDS: QUEtiapine FUMARATE **XR** 200MG TABLET PO SCH (23:06)
[2017-03-18 06:27] VITALS: BP 117/59
--- NOTE | 2017-03-18 09:45 | HPEPDOC ---
[facility] Medical History & Physical Date of Admission Mar 17, 2017 History and Physical PCP: [facility] ATTENDING: Dr. Efrain Velasquez HPI: 31yoM admitted to [facility] for depressive disorder, being medically examined today. Pt states he has chronic migraine LEIVA, follows with [facility]. Had MRI brain completed there which was neg per pt. Pt states he has LEIVA once per day, behind left or right eye. Throbbing associated with photophobia, phonophobia, nausea, dizziness. No visual changes, vomiting. Has tried Elavil and Fioricet in the past. HAs last 10 min to 1 hour per pt. Currently takes Celebrex daily which he states has helped. Pt states he has chronic neck and mid back pain with spasms, this radiates to the scapular areas B/L. No weakness, numbness, tingling in UEs/LEs. The pt states he has been referred to PT as outpt as per PCP. Denies any fevers, chills, weakness, fatigue, LEIVA, CP, SOB, cough, palpitations, abdominal pain, N/V/D or changes in bowel or bladder habits. PMHx: Migraine LEIVA. [facility]. panic attacks, obstructive sleep apnea . CPAP. H/OSyncopal episode. Evaluated by Dr Miranda. 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 IV Drug Use: Denies Tattoos done unprofessionally: Denies FAMHX: Mother: Alive, thyroid disease Father: Alive, DM, CAD Siblings: 1 brotehr Alive, well Children: Alive, well Unexpected deaths due to medical reasons: None. ROS: As noted in HPI, otherwise 11pt ROS of systems reviewed and unremarkable. PE: GEN: 31yoM, appears stated age. Well-nourished, well developed. No acute distress. Alert and oriented x 3. Pleasant, interactive. HEENT: Normocephalic, atraumatic. Pupils are equal, round, and reactive to light. Extraocular movements are intact. No nystagmus appreciated. Sclera are nonicteric. Conjunctiva without injection. Nose midline. Nasal turbinates without bogginess. EACs both patent BL. TMs both visualized and alves with good cone of light, no bulging or erythema. No facial asymmetry. Moist mucous membranes. Dentition fair. Pharynx pink and moist, no cobblestoning. Neck supple , trachea midline. No lymphadenopathy or thyromegaly appreciated. CHEST: Regular rate and rhythm, +S1, +S2 LUNGS: Clear to auscultation bilaterally. No wheezes, rales, or rhonchi. Breathing appears symmetric and easy. Patient is speaking in full sentences. No accessory muscle use. ABD: Round, soft, non-tender, non-distended. +Bowel sounds throughout. No rebound or guarding. No costovertebral angle tenderness. EXT: Pulses 2+ bilaterally dorsalis pedis and radial. No lower extremity edema appreciated. SKIN: [place], dry, warm. Capillary refill <2sec. No rashes. NEURO: Alert and oriented x 3. Cranial nerves III-XII are intact. No focal deficits appreciated. No TTP over cervical spine, mild TTP over mid thoracic spine and PS muscles, scapular muscles. EK01/09/17 Normal sinus rhythm Normal EKG No significant change since 01/05/2017 A&P: 31yoM admitted to [facility] for depressive disorder 1. Psych. Plan per Psychiatry. EKG on file. 2. KATHY. CPAP. 3. Migraine LEIVA. Continue Celebrex daily. Tylenol as needed. Follows with [facility], continue outpatient f/u. 4. Follow up with PCP on discharge. 5. Chronic neck and mid back pain. Check XR of cervical and thoracic spine. Lidoderm patch daily a needed. Continue Celebrex daily. Consider pain mgmt consult if needed. 6. Staff member Ry present throughout exam. Vital Signs Vital Signs Date Time Temp Pulse Resp B/P (MAP) Pulse Ox O2 Delivery O2 Flow Rate FiO2 03/18/17 06:27 98.5 81 18 117/59 (78) 03/17/17 21:00 99 Room Air Laboratory Data Labs 24H Laboratory Tests 2 03/17/17 17:53: Nucleated Red Blood Cells % (auto) 0.0, Anion Gap 6L, Glomerular Filtration Rate > 60.0, Calcium Level 8.5, Aspartate Amino Transf (AST/SGOT) 10, Alanine Aminotransferase (ALT/SGPT) 21, Alkaline Phosphatase 98, Total Bilirubin 0.4, Direct Bilirubin 0.1, Total Protein 7.2, Albumin 4.1, Albumin/Globulin Ratio 1.32, Thyroid Stimulating Hormone (TSH) 1.410, Salicylates Level < 1.7L, Urine Amphetamines Screen NEGATIVE, Urine Benzodiazepines Screen NEGATIVE, Urine Opiates Screen NEGATIVE, Urine Methadone Screen NEGATIVE, Acetaminophen Level < 2.0L, Urine Barbiturates Screen NEGATIVE, Urine Phencyclidine Screen NEGATIVE, Urine Cocaine Metabolite Screen NEGATIVE, Urine Cannabinoids Screen NEGATIVE, Ethyl Alcohol Level < 0.003 CBC/BMP Laboratory Tests 03/17/17 17:53 Red Blood Count 5.00, Mean Corpuscular Volume 84.6, Mean Corpuscular Hemoglobin 28.2, Mean Corpuscular Hemoglobin Concent 33.3, Red Cell Distribution Width 12.5 Home Medications Scheduled Celecoxib (Celebrex) 100 Mg Cap, 100 MG PO DAILY Hydroxyzine HCl (Hydroxyzine HCl) 50 Mg Tab, 50 MG PO DAILY Quetiapine Fumarate (Seroquel Xr) 200 Mg Jessica, 200 MG PO QHS Allergies Coded Allergies: No Known Allergies (Unverified , 09/30/16) Aaliyah Bustamante Mar 18, 2017 09:45
[2017-03-18] MEDS: CelecoXIB (CeleBREX) 100 MG CAP PO SCH (10:07)
[2017-03-18] MEDS: LIDOCAINE 5% (LIDODERM) PATCH TD SCH (10:08)
--- NOTE | 2017-03-18 11:39 | REP ---
Clinical: Pain . Technique: AP, lateral, flexion/extension, bilateral oblique, and open-mouth views. Findings: Alignment and lordosis is maintained. There is no evidence for acute fracture / compression injury or subluxation. No significant degenerative changes are appreciated. Oblique views demonstrate patent neural foramen. Open mouth view demonstrates normal C1-C2 articulation and odontoid process. Impression: Normal cervical spine series. Signed by Kaiser Warren MD 03/18/2017 11:31 A
--- NOTE | 2017-03-18 11:39 | REP ---
Clinical: thoracic pain. Technique: AP, lateral, and swimmers views. Findings: Alignment and kyphosis is maintained. Vertebral bodies intact. No acute fracture / compression injury or subluxation. No degenerative changes. Paravertebral soft tissues are normal. Impression: Normal thoracic spine series. Signed by Kaiser Warren MD 03/18/2017 11:31 A
[2017-03-18] MEDS: **NOTE PATIENT COMMENT** MISC XX SCH (21:40)
[2017-03-18] MEDS: QUEtiapine FUMARATE **XR** 200MG TABLET PO SCH (21:41)
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
[2017-03-19 06:26] VITALS: BP 113/59
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
[2017-03-19] MEDS: SERTRALINE HCL 50 MG TAB PO SCH (10:04)
[2017-03-19] MEDS: LIDOCAINE 5% (LIDODERM) PATCH TD SCH (10:04)
[2017-03-19] MEDS: CelecoXIB (CeleBREX) 100 MG CAP PO SCH (10:04)
[2017-03-19] MEDS: BACLOFEN 5MG PER 1/2 TABLET PO SCH ×2 (16:21→21:14)
[2017-03-19 18:23] VITALS: BP 123/67
[2017-03-19] MEDS: **NOTE PATIENT COMMENT** MISC XX SCH (21:12)
[2017-03-19] MEDS: QUEtiapine FUMARATE **XR** 200MG TABLET PO SCH (21:14)
[2017-03-20 06:00] VITALS: BP 131/88
[2017-03-20] MEDS: SERTRALINE HCL 50 MG TAB PO SCH (08:59)
[2017-03-20] MEDS: BACLOFEN 5MG PER 1/2 TABLET PO SCH ×3 (08:59→20:47)
[2017-03-20] MEDS: CelecoXIB (CeleBREX) 100 MG CAP PO SCH (08:59)
[2017-03-20] MEDS: LIDOCAINE 5% (LIDODERM) PATCH TD SCH (09:00)
[2017-03-20 18:00] VITALS: BP 120/68
[2017-03-20] MEDS ORDERED: ONDANSETRON 4 MG TAB (S0181) PO PRN (19:15)
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
[2017-03-20] MEDS: **NOTE PATIENT COMMENT** MISC XX SCH (20:46)
[2017-03-20] MEDS: QUEtiapine FUMARATE **XR** 200MG TABLET PO SCH (20:47)
[2017-03-21 07:14] VITALS: BP 134/84
[2017-03-21] MEDS: LIDOCAINE 5% (LIDODERM) PATCH TD SCH (08:03)
[2017-03-21] MEDS: SERTRALINE HCL 50 MG TAB PO SCH (08:03)
[2017-03-21] MEDS: CelecoXIB (CeleBREX) 100 MG CAP PO SCH (08:03)
[2017-03-21] MEDS: BACLOFEN 5MG PER 1/2 TABLET PO SCH (08:03)
[2017-03-21] MEDS ORDERED: SERT50TA PO (08:50)
[2017-03-21] MEDS ORDERED: ONDA4TAB5 PO (08:50)
[2017-03-21] MEDS ORDERED: QUET20XRTB PO (08:50)
[2017-03-21] MEDS ORDERED: ARIP5TA PO (08:50)
[2017-03-21] MEDS ORDERED: BACL10TA2 PO (08:50)
[2017-03-21] MEDS ORDERED: LIDO5TD TD (08:50)
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
[2017-03-21] MEDS ORDERED: QUET1TAB9 PO (09:52)
== END 2017-03-21 11:50 | DRG 885 ==
LOC: M ED 17:21 → M ED INP 20:25 → M PSY 21:30
PROVIDERS: ADMIT Psychiatry & Neurology Psychiatry; ATTEND Psychiatry & Neurology Psychiatry
DX: F31.9 Bipolar disorder, unspecified (principal); E70.30 Albinism, unspecified; F60.3 Borderline personality disorder; F43.10 Post-traumatic stress disorder, unspecified; G47.33 Obstructive sleep apnea (adult) (pediatric); Z99.89 Dependence on other enabling machines and devices; G43.909 Migraine, unspecified, not intractable, without status migrainosus; M54.5 Low back pain; M54.2 Cervicalgia; Z79.899 Other long term (current) drug therapy

== ENCOUNTER 2017-05-06 20:18 | Inpatient (IN) | payer OTHER ==
[2017-05-06 20:35] LABS: BEDSIDE GLUCOSE 95 MG/DL (70-105)
[2017-05-06 20:51] LABS: BASO % 0.3 % (0.0-1.0); EOS # 0.1 10^3/uL (0.0-0.50); HEMATOCRIT 43.6 % (42.0-52.0); HEMOGLOBIN 14.9 g/dl (14.0-18.0); IMMATURE GRANULOCYTE % 0.3 % (0-0); LYMPH # 1.4 10^3/uL (1.5-6.5); LYMPH % 21.3 % (24.0-44.0); MEAN CORPUSCULAR HEMOGLOBIN 28.1 pg (27.0-33.0); MEAN CORPUSCULAR HGB CONC 34.2 g/dl (32.0-36.5); MEAN CORPUSCULAR VOLUME 82.3 fl (80.0-96.0); MONO # 0.5 10^3/uL (0.0-0.8); MONO % 7.2 % (0.0-5.0); NEUTROPHILS # 4.6 10^3/uL (1.8-7.7); NEUTROPHILS % 68.9 % (36.0-66.0); PLATELET COUNT, AUTOMATED 246 10^3/uL (150-450); RED CELL DISTRIBUTION WIDTH 12.2 % (11.5-14.5); WHITE BLOOD COUNT 6.6 10^3/uL (4.0-10.0)
[2017-05-06] MEDS: NS 1,000 ML IV (20:56)
[2017-05-06 21:05] LABS: ALBUMIN 4.5 GM/DL (3.2-5.2); ALBUMIN/GLOBULIN RATIO 1.32 (1.00-1.93); ALKALINE PHOSPHATASE 93 U/L (45-117); ALT/SGPT 20 U/L (12-78); ANION GAP 9 MEQ/L (8-16); AST/SGOT 11 U/L (7-37); BILIRUBIN,DIRECT 0.1 MG/DL (0.0-0.2); BILIRUBIN,TOTAL 0.4 MG/DL (0.2-1.0); BLOOD UREA NITROGEN 14 MG/DL (7-18); CALCIUM LEVEL 9.1 MG/DL (8.5-10.1); CARBON DIOXIDE LEVEL 28 MEQ/L (21-32); CHLORIDE LEVEL 105 MEQ/L (98-107); CPK CREATINE PHOSPHOKINASE 61 U/L (39-308); CREATININE FOR GFR 1.16 MG/DL (0.70-1.30); GLOMERULAR FILTRATION RATE > 60.0 (>60); GLUCOSE, FASTING 106 MG/DL (70-105); POTASSIUM SERUM 3.5 MEQ/L (3.5-5.1); SALICYLATE LEVEL < 1.7 MG/DL (5.0-30.0); SODIUM LEVEL 142 MEQ/L (136-145); TOTAL PROTEIN 7.9 GM/DL (6.4-8.2)
[2017-05-06 21:11] LABS: ACETAMINOPHEN LEVEL < 2.0 UG/ML (10.0-30.0); ETHYL ALCOHOL (ETHANOL) < 0.003 % (0.000-0.010)
[2017-05-07 00:29] LABS: AMPHETAMINES LEVEL URINE NEGATIVE (NEGATIVE); BARBITURATES URINE NEGATIVE (NEGATIVE); BENZODIAZEPINES URINE NEGATIVE (NEGATIVE); CANNABINOIDS URINE NEGATIVE (NEGATIVE); COCAINE METABOLITE URINE NEGATIVE (NEGATIVE); METHADONE URINE NEGATIVE (NEGATIVE); OPIATES URINE NEGATIVE (NEGATIVE); PHENCYCLIDINE URINE NEGATIVE (NEGATIVE)
[2017-05-07] MEDS ORDERED: HALOPERIDOL 5 MG TAB PO (03:00)
[2017-05-07] MEDS ORDERED: LORazepam 1 MG TAB PO (03:00)
[2017-05-07] MEDS ORDERED: traZODone 50 MG TAB PO ×2 (03:00→03:15)
[2017-05-07] MEDS ORDERED: MAALOX 30 ML SUSP *UDC PO (03:00)
[2017-05-07] MEDS ORDERED: MOM 30ML SUSPENSION UDC PO (03:00)
[2017-05-07] MEDS ORDERED: ACETAMINOPHEN TAB 650MG DOSE (2X325MG) PO (03:00)
[2017-05-07] MEDS ORDERED: ONDANSETRON 4 MG TAB (S0181) PO (03:15)
[2017-05-07] MEDS: CelecoXIB (CeleBREX) 100 MG CAP PO (08:45)
[2017-05-07] MEDS: BACLOFEN 10 MG TAB PO ×3 (08:45→21:42)
[2017-05-07] MEDS: hydrOXYzine 50 MG TAB PO (08:45)
[2017-05-07] MEDS: SERTRALINE HCL 50 MG TAB PO (08:45)
[2017-05-07] MEDS ORDERED: SERTRALINE HCL 50 MG TAB PO (09:00)
[2017-05-07] MEDS ORDERED: hydrOXYzine 50 MG TAB PO (09:00)
[2017-05-07] MEDS ORDERED: CelecoXIB (CeleBREX) 100 MG CAP PO (09:00)
[2017-05-07] MEDS ORDERED: BACLOFEN 10 MG TAB PO (09:00)
[2017-05-07] MEDS: traZODone 50 MG TAB PO (21:42)
[2017-05-07] MEDS ORDERED: FEXOFENADINE 60 MG TAB PO (22:00)
[2017-05-08] MEDS: hydrOXYzine 50 MG TAB PO (08:14)
[2017-05-08] MEDS: CelecoXIB (CeleBREX) 100 MG CAP PO (08:14)
[2017-05-08] MEDS: SERTRALINE HCL 50 MG TAB PO (08:14)
[2017-05-08] MEDS: BACLOFEN 10 MG TAB PO ×3 (08:15→21:27)
[2017-05-08] MEDS ORDERED: ATORVASTATIN 20 MG TAB PO (09:00)
[2017-05-08] MEDS ORDERED: LISINOPRIL 40 MG TAB PO (09:00)
[2017-05-08] MEDS ORDERED: FLUoxetine 20 MG CAP PO (09:00)
[2017-05-08] MEDS ORDERED: FERROUS SULFATE 325MG TAB PO (09:00)
[2017-05-08] MEDS ORDERED: MELOXICAM (MOBIC) 7.5 MG TAB PO (09:00)
[2017-05-08] MEDS ORDERED: hydroCHLOROthiazide 25 MG TAB PO (09:00)
[2017-05-08] MEDS ORDERED: PANTOPRAZOLE 40MG TAB (PROTONIX) PO (09:00)
[2017-05-08] MEDS: traZODone 50 MG TAB PO (21:28)
[2017-05-09] MEDS: BACLOFEN 10 MG TAB PO ×3 (09:30→21:34)
[2017-05-09] MEDS: CelecoXIB (CeleBREX) 100 MG CAP PO (09:30)
[2017-05-09] MEDS: SERTRALINE HCL 50 MG TAB PO (09:30)
[2017-05-09] MEDS: hydrOXYzine 50 MG TAB PO (09:30)
[2017-05-09] MEDS: traZODone 50 MG TAB PO (21:34)
[2017-05-10] MEDS: BACLOFEN 10 MG TAB PO ×3 (08:05→20:44)
[2017-05-10] MEDS: hydrOXYzine 50 MG TAB PO (08:05)
[2017-05-10] MEDS: SERTRALINE HCL 50 MG TAB PO (08:05)
[2017-05-10] MEDS: CelecoXIB (CeleBREX) 100 MG CAP PO (08:05)
[2017-05-10] MEDS: traZODone 50 MG TAB PO (20:44)
[2017-05-11] MEDS: BACLOFEN 10 MG TAB PO ×3 (07:52→20:49)
[2017-05-11] MEDS: SERTRALINE HCL 25 MG TABLET PO (07:52)
[2017-05-11] MEDS: hydrOXYzine 50 MG TAB PO (07:52)
[2017-05-11] MEDS: CelecoXIB (CeleBREX) 100 MG CAP PO (07:53)
[2017-05-11] MEDS: traZODone 50 MG TAB PO (20:49)
[2017-05-12] MEDS: SERTRALINE HCL 25 MG TABLET PO (08:33)
[2017-05-12] MEDS: hydrOXYzine 50 MG TAB PO (08:34)
[2017-05-12] MEDS: BACLOFEN 10 MG TAB PO ×3 (08:34→20:42)
[2017-05-12] MEDS: CelecoXIB (CeleBREX) 100 MG CAP PO (08:34)
[2017-05-12] MEDS: traZODone 50 MG TAB PO (20:41)
[2017-05-13] MEDS: BACLOFEN 10 MG TAB PO (08:06)
[2017-05-13] MEDS: hydrOXYzine 50 MG TAB PO (08:06)
[2017-05-13] MEDS: SERTRALINE HCL 25 MG TABLET PO (08:06)
[2017-05-13] MEDS: CelecoXIB (CeleBREX) 100 MG CAP PO (08:06)
== END 2017-05-13 11:45 | disposition home or self-care (01) | DRG 885 ==
LOC: M ED 05-07 03:30 → M PSY 05-07 02:58
DX: F33.3 Major depressive disorder, recurrent, severe with psychotic symptoms (principal); F43.10 Post-traumatic stress disorder, unspecified; F60.3 Borderline personality disorder; M54.2 Cervicalgia; G43.909 Migraine, unspecified, not intractable, without status migrainosus; G47.33 Obstructive sleep apnea (adult) (pediatric); Z99.89 Dependence on other enabling machines and devices; Z79.899 Other long term (current) drug therapy